=== PATIENT | female | born 1995 | race Caucasian/White ===

== ENCOUNTER 2021-10-26 12:09 | Emergency (ER) | payer SELFPAY ==
[2021-10-26 13:31] VITALS: BP 113/85; PULSE 99; RESP 14; TEMP 36.9; O2SAT 98; BMI 27.3
--- NOTE | 2021-10-26 13:51 | HMH.EDUTC ---
[facility] [place] Disposition Clinical Impression: Viral syndrome, Encounter for laboratory testing for COVID-19 virus Disposition: Home, Self-Care Condition on Discharge: Good Instructions: DI for COVID-19 (Suspected or Confirmed ), Preventing the Spread of Coronavirus Discharge Instructions Additional Instructions: Drink plenty of fluids. Take tylenol for pain or fever. Return if you begin to have difficulty breathing. Follow up with your regular doctor. GO TO THE ER FOR ANY WORSENING SYMPTOMS Quarantine until you know the results of your covid-19 test. If it is positive, the health department should call you and give you further instructions about your length of Quarantine and other things. Notify your school or workplace of your results and follow their instructions regarding return to work/school. Prescriptions: Brompheniramine/Pseudoephed/Dm [Bromfed Dm Cough Syrup] 5 ml PO Q6HP PRN #240 ml PRN Reason: Cough Transmission Status: Received by [facility] #[id number] Ondansetron [Zofran 4mg ODT] 4 mg PO Q8HP PRN #20 tab PRN Reason: Nausea Transmission Status: Received by [facility] #[id number] Referrals: Provider,Referral, [Primary Care Provider] - Forms: Work/School Release Time of Disposition: 13:58 Medical Decision Making - Medical Records Medical records reviewed: No: I reviewed the patient's medical records. - Rommel Inquiry Pt receiving controlled substance: No Vital Signs: 10/26/21 13:31 10/26/21 13:55 Temperature 98.5 F 98.5 F Temperature Source Oral Pulse Rate 99 H Pulse Rate [Left] 99 H Respiratory Rate 14 14 Blood Pressure 113/85 Blood Pressure [Right Arm] 113/85 Blood Pressure Mean [Right Arm] 94 02 Sat by Pulse Oximetry 98 [facility] [place] HPI - General Stated complaint: covid test Time Seen by Provider: 10/26/21 13:51 Mode of Arrival: Ambulatory Source of Information: Patient Limitations: No Limitations Description of Symptoms (Recalled from Triage Doc. by RN): pt c/o loss of taste, congestion and fatigue since yesterday. pt wants a covid test. HEENT Symptoms (Recalled from RN notes): Yes Resp Symptoms (Recalled from RN notes): No Skin Symptoms (Recalled from RN notes): No MS Symptoms (Recalled from RN notes): No Functional Status (Recalled from RN notes): wnl - History of Present Illness Provider Complaint: She states that she has felt bad since yesteday. She has a mild dry cough, scratchy throat, and fatigue. She denies any shortness of breath - Related Data Previous Rx's Medication Instructions Recorded Brompheniramine/Pseudoephed/Dm 5 ml PO Q6HP PRN #240 ml 10/26/21 [Bromfed Dm Cough Syrup] Ondansetron [Zofran 4mg ODT] 4 mg PO Q8HP PRN #20 tab 10/26/21 Allergies Allergy/AdvReac Type Severity Reaction Status Date / Time No Known Allergies Allergy Verified 10/26/21 13:34 - Worker's Comp Is this a Worker's Comp case?: No [facility] History - Hepatitis A Screen Drug use history?: No High risk sexual behaviors?: No History of sexually transmitted infection?: No Currently employed?: No Childcare worker?: No Do you have indoor plumbing?: Yes Do you have electricity?: Yes Attestation statement:: This patient has been screened for Hepatitis A risk factors. I have reviewed the patient's past medical history: Yes ROS Obtained: Yes All systems reviewed & no additional complaints - Constitutional Constitutional: Reports system reviewed and no additional complaints, except as docu - Eyes Eyes: Reports system reviewed and no additional complaints, except as docu - ENT Ears, Nose, Mouth, and Throat: Reports system reviewed and no additional complaints, except as docu - Cardiovascular Cardiovascular: Reports system reviewed and no additional complaints, except as docu - Respiratory Respiratory: Reports system reviewed and no additional complaints, except as docu Physical Exam - General General appearance: alert, in
[2021-10-26 13:55] VITALS: BP 113/85; PULSE 99; RESP 14; TEMP 36.9
== END 2021-10-26 14:04 | disposition home or self-care (01) ==
PROVIDERS: Emergency Provider Nurse Practitioner Family
DX: B34.9 Viral infection, unspecified (principal); Z20.822 Contact with and (suspected) exposure to COVID-19
CPT/HCPCS: 99212; C9803; G0463; U0003; U0005

== ENCOUNTER 2023-11-14 14:15 | Outpatient (CLI) | payer BC, SELFPAY ==
--- NOTE | 2023-11-14 | CA_ITS ---
APPROVED REPORT EXAM: Comprehensive 2D, Doppler, and color-flow Echocardiogram Wood Molder: Erlinda Mcintyre CRT Ht: 5 ft 8 in Wt: 210lbs BSA: 2.09 BP: 113/85 mmHg Indications: Chest Pain 2D Dimensions Left Atrium 2.49 cm LVEF (Bassett's) 52.30 % LVOT 1.73 cm (M/F) 1.5-2.5 LV Volume 100.60 mL LA Volume 32.90 mL LA Volume Index 15.70 mL/m2 (M/F) 16-34 EF AP4 55.20 % EF AP2 50.8 % EF BP 52.3 % GL Strain -17.6 % M-Mode Dimensions RVDd 1.71 cm (0.9-2.6) LVDd 4.96 cm (3.5-5.7) Ao Diam 3.29 cm (2.0-3.7) LVDs 3.48 cm (3.5-5.7) IVSd 0.57 cm (0.6-1.1) PWd 0.57 cm (0.6-1.1) EF (Teich) 56.80% FS 29.80% EDV (Teich) 116.10 mL TAPSE 1.53 (<1.7) ESV (Teich) 50.20 mL LV Diastology E Decel Time 192 (160-240 msec) E/A Ratio 1.30 MED E' 11.7 (>= 7 cm/sec) MED A' 9.30 cm/s E'/MED E' Ratio 5.44 (<= 14) LAT E' 14.2 (>= 10 cm/sec) LAT A' 11.40 cm/s E/LAT E' Ratio 4.49 (<= 14) Aortic Valve AoV Peak Shola. 112.0 (50-130 cm/s) AO Peak GR. 5.00 mmHg Mitral Valve MV E Max Shola. 64.0 (40-130 cm/s) MV A Velocity 49.0 (40-130 cm/s) E/A Ratio 1.30 MV Decel. Time 192 (160-240 ms) Tricuspid Valve TR P. Velocity 229.00 cm/s RAP Estimate 10.00 mmHg RVSP 31.00 mmHg Left Ventricle The left ventricle is normal size. The left ventricular systolic function is normal. The left ventricular ejection fraction is within the normal range. There is normal left ventricular wall thickness. There is normal LV segmental wall motion. The left ventricular diastolic function is normal. LVEF is 55%. Right Ventricle The right ventricle is normal size. The right ventricular systolic function is normal. Atria The left atrium size is normal. The right atrium size is normal. The interatrial septum is not well-visualized. Aortic Valve The aortic valve opens well. There is no aortic valvular stenosis. No aortic regurgitation is present. Mitral Valve The mitral valve is normal in structure. No evidence of mitral valve stenosis. There is no mitral valve regurgitation noted. Tricuspid Valve The tricuspid valve leaflets are thin and pliable. Trace tricuspid regurgitation. There is insufficient TR jet to estimate RVSP. Pulmonic Valve The pulmonary valve is normal in structure. Trace pulmonic regurgitation. Great Vessels The aortic root is normal in size. The ascending aorta is normal in size. IVC is normal in size and collapses >50% with inspiration. Pericardium There is no pericardial effusion. Other Information Study Quality: Adequate Conclusion Normal biventricular systolic function. No significant valvular stenosis or regurgitation. Electronically signed by : Donna Solis MD 11/16/2023 11:57:09
--- NOTE | 2023-11-14 | CA_ITS ---
APPROVED REPORT Exam: Exercise Treadmill Technologist: Ching Santos Ht: 5 ft 8 in Wt: 210 lbs BSA: 2.09 m2 HR: 79 bpm BP: 110/66 mmHg Indications: Chest pain Medical History Medications: Levothyroxine,,,,, Vitamin D3,,,,, Stress Test Details Test: Iván HR Resting HR: 94 bpm Max Heart Rate (APMHR): 192 bpm Max HR Achieved: 180 bpm Target HR (85% APMHR): 163 bpm % of APMHR: 94 Recovery HR: 104 bpm HR response to stress: Normal HR response to stress BP Resting BP: 110.0/66.0 mmHg Max BP: 141.0/77.0 mmHg Recovery BP: 109.0/68.0 mmHg BP response to stress: Normal blood pressure response to stress. ECG Resting ECG: Sinus rhythm Stress ECG: < 0.[address] depression Arrhythmia: None Recovery ECG: Return to baseline within 3 minutes of recovery Recovery Arrhythmia: None Clinical Exercise duration: 08:32 min Highest Stage Achieved: Exercise capacity: 10.1 METs Overall Exercise Capacity for Age: Average Stress ECG Conclusion The patient was able to exercise for a total of 8 minutes, 32 seconds. She achieved a total of 10.1 METS. She has average exercise capacity compared to age and sex matched peers. She has normal HR and BP response to exercise. Symptoms: Dyspnea Arrhythmias/Ectopy: None ST-T Changes: < 0.[address] depression Conclusion: Average exercise capacity. Normal GXT, EKG normal response to exercise. Test Summary REST . . . . . . . Standing REST 04:11 0.0 0.0 94 . 110/ 66 . . Stage 1 01:00 10.0 1.7 121 . . . . Stage 1 02:00 10.0 1.7 143 . . . . Stage 1 03:00 10.0 1.7 143 . 118/ 70 . . Stage 2 01:00 12.0 2.5 161 . . . . Stage 2 02:00 12.0 2.5 166 . . . . Stage 2 03:00 12.0 2.5 163 . 130/ 80 . . Stage 3 01:00 14.0 3.4 174 . . . . Stage 3 02:00 14.0 3.4 178 . . . . Stage 3 02:32 14.0 3.4 180 . 138/ 82 . Stop exercise at 08:32 RECOVERY 01:00 0.0 0.0 155 . 136/ 78 . . RECOVERY 02:00 0.0 0.0 119 . 136/ 78 . . RECOVERY 03:00 0.0 0.0 112 . 141/ 77 . . RECOVERY 04:00 0.0 0.0 101 . 130/ 71 . . RECOVERY 05:00 0.0 0.0 107 . 130/ 71 . . RECOVERY 06:00 0.0 0.0 106 . 130/ 71 . . RECOVERY 07:00 0.0 0.0 104 . 109/ 68 . . RECOVERY 07:11 0.0 0.0 109 . 109/ 68 . . Electronically signed by : Donna Solis MD 11/20/2023 10:35:45
== END 2023-11-14 23:59 ==
LOC: RT 14:17
PROVIDERS: PCP Family Medicine; Visit Provider Nurse Practitioner
DX: R07.9 Chest pain, unspecified (principal); R06.02 Shortness of breath
CPT/HCPCS: 93017; 93018; 93306

== ENCOUNTER 2024-02-14 15:23 | Emergency (ER) | payer BC, SELFPAY ==
--- NOTE | 2024-02-14 15:23 | ECG_ITS ---
APPROVED REPORT Exam: Resting ECG HR:75 bpm ECG Measurements Heart Rate 75 AXES AL 169 P 58 QRSd 88 QRS 65 QT 338 T 61 QTc 368 Conclusion SINUS RHYTHM WITH SINUS ARRHYTHMIA NORMAL ECG Electronically signed by : MORGAN RYDER, 02/14/2024 21:40:04
[2024-02-14 15:34] VITALS: BP 115/70; PULSE 78; RESP 15; TEMP 36.5; O2SAT 98; BMI 30.7
--- NOTE | 2024-02-14 15:41 | ED_ITS ---
<Statement entered by Sundar Mejia MD - 02/14/24 17:27> I was consulted by the DIPAK, and we discussed the complexity of the problems being addressed. I approved the treatment and management plan for this patient's care in the emergency department, thus performing a substantive portion of the medical decision making. Upon my evaluation patient had complete resolution of symptoms. She has slight leukocytosis that is of undetermined significance, very mild transaminitis with unknown baseline, no elevated lipase. Patient was tolerating p.o. at bedside. Given this all taken together with CT read showing cholelithiasis without evidence of cholecystitis I suspect patient has biliary colic, there was also an incidental pelvic mass that was found and it was impressed upon the patient that she should follow-up with gynecology for which she was referred given that she does not have one. Mild transaminitis is of undetermined etiology however I do not suspect choledocholithiasis as there was no reported dilated common bile duct and no evidence of cholecystitis, no elevated lipase. Patient was given multiple return precautions and verbalized understanding. Sundar Mejia MD Discharge Plan Disposition Patient Disposition: Home, Self-Care Condition: Good Prescriptions Prescriptions: New ondansetron 4 mg tablet,disintegrating 4 mg PO Q6H PRN (Reason: nausea and vomiting) Qty: 10 0RF No Action [id number] 118 ML syrup 5 ml PO Q6HP PRN (Reason: Cough) Qty: 240 0RF ondansetron 4 MG tablet,disintegrating 4 mg PO Q8HP PRN (Reason: Nausea) Qty: 20 0RF Referrals Follow up/Referrals: Janey Hunt DO [Staff Physician] - See instructions (Complex pelvic mass) Mario Kay MD [Staff Physician] - See instructions (Symptomatic cholelithiasis) Ana Conley APRN [Primary Care Provider] - See instructions Activity Restrictions/Add. Instructions Additional Instructions/Restrictions: I have referred you to both general surgery for your gallstone and [facility] for the pelvic findings on CT. Please call in the morning to make appointments with these providers. You should see [facility] within 1 week. Return to the ER for any worsening signs or symptoms as needed. Clinical Impressions Clinical Impression: Symptomatic cholelithiasis, Pelvic mass Instructions Patient Instructions: DI for Gallstones Discharge ED Provider: Sundar Mejia HPI <DOUG Scott - Last Filed: 02/14/24 17:22> General Chief Complaint: Chest Pain Stated Complaint: cp Time Seen by Provider: 02/14/24 15:40 Mode of Arrival: Ambulatory Source of Information: Patient Limitations: No Limitations Description of Symptoms (Recalled from ER Triage Doc. by RN): pt c/o sternal chest pain that radiates through to her back, epigasteric pain, shakiness, sweating, and N/V/D. pt states the pain is pressure and aching in nature and a 7/10. pt states this has been ongoing since 0. However pt states she has periodically had these episodes for a long time. pt states she had an echo and stress test after seeing that came back negative. pt presents crying and seems anxious. History of Present Illness HPI narrative: Patient presented initially with a chief complaint of chest pain . Patient states around noon today that she began having actually epigastric abdominal pain with associated nausea that radiates to her back but also nausea vomiting and diarrhea. Patient also reports periodic episodes of these for over a year. Patient's PCP sent her for an echo and stress testing that has come back negative. She denies any aggravating or relieving factors. Related Data Previous Rx's Medication Instructions Recorded jvqayctuslbuvfa-ouggwmhzbxjbaiq-BX 5 ml PO Q6HP PRN Cough #240 mL 10/26/21 2 mg-30 mg-10 mg/5 mL oral syrup ondansetron 4 mg disintegrating 4 mg PO Q8HP PRN Nausea #20 tabs 10/26/21 tablet ondansetron 4 mg disintegrating 4 mg PO Q6H PRN nausea and 02/14/24 tablet vomiting #10 tabs Allergies Allergy/AdvReac Type Severity Reaction Status Date / Time No Known Allergies Allergy Verified 02/14/24 15:40 PFSH <DOUG Scott - Last Filed: 02/14/24 17:22> PFS Disclaimer: The information contained in this section may have been updated after the patient was seen, as this information can be updated by other users. Social History Smoking Status: Current every day smoker alcohol intake: never current occupational status: employed Travel in the last 8 weeks: None <DOUG Scott - Last Filed: 02/14/24 17:22> ROS Obtained: Yes Systems reviewed as appropriate & no additional complaints except as documented Physical Exam <DOUG Scott - Last Filed: 02/14/24 17:22> General General appearance: alert and in no apparent distress Eye Eye exam: Absent scleral icterus Respiratory Respiratory exam: Present normal lung sounds bilaterally Cardiovascular Cardiovascular exam: Present regular rate and normal rhythm Abdominal Exam Abdominal exam: Present soft, tenderness (Patient is very tender to palpation in the epigastrium but no rebound or guarding or rigidity. Bowel sounds are normal active.) and normal bowel sounds; Absent guarding, rebound or rigidity Back Exam Back exam: Present normal inspection and full ROM; Absent tenderness Neurological Exam Neurological exam: Present alert and oriented X3 HEART Score <DOUG Scott - Last Filed: 02/14/24 17:22> HEART Score HEART Score assessment performed?: Yes History (anamnesis): Slightly suspicious ECG: Normal Age: <45 years Risk factors: No known risk factors Troponin: </= normal limit HEART Score: 0 Critical Care <DOUG Scott - Last Filed: 02/14/24 17:22> Critical Care Time Critical Care Time: No Medical Decision Making <DOUG Scott Last Filed: 02/14/24 17:22> Medical Records Medical records reviewed: Yes I reviewed the patient's medical records. Rommel Inquiry Pt receiving controlled substance: No Vital Signs Vital Signs: 02/14/24 15:34 02/14/24 16:30 Temperature 97.7 F Temperature Source Oral Pulse Rate 76 Pulse Rate [Left] 78 Respiratory Rate 15 17 Blood Pressure 116/77 Blood Pressure [Right Arm] 115/70 Blood Pressure Mean 86 Blood Pressure Mean [Right Arm] 85 02 Sat by Pulse Oximetry 98 98 Oxygen Delivery Method Room Air Lab Data Lab results reviewed: Yes I reviewed the patient's lab results. Labs: Lab Results 02/14/24 15:30: WBC 14.6 H, RBC 4.65, Hgb 13.8, Hct 42.4, MCV 91.1, MCH 29.7, MCHC 32.6, RDW 14.3, Plt Count 325, MPV 8.3, Neut % (Auto) 87.2 H, Lymph % (Auto) 8.3 L, [place] % (Auto) 3.7, Eos % (Auto) 0.5, Baso % (Auto) 0.3, Neut # (Auto) 12.8 H, Lymph # (Auto) 1.2, [place] # (Auto) 0.5, Eos # (Auto) 0.1, Baso # (Auto) 0.1, Total Counted 100, Neutrophils % (Manual) 88 H, Lymphocytes % (Manual) 10, Monocytes % (Manual) 1 L, Eosinophils % (Manual) 1, Platelet Estimate Normal, RBC Morphology Normal, PT 11.1, INR 1.03, Sodium 139, Potassium 4.0, Chloride 106, Carbon Dioxide 25, Anion Gap 12.0, BUN 12, Creatinine 0.70, Estimated Creat Clear 173, Estimated GFR 100, Est GFR ( Amer) 121, G lucose 108 H, Calcium 9.3, Magnesium 1.9, Total Bilirubin 0.6, AST 157 H, ALT 85 H, Alkaline Phosphatase 110, Troponin I < 0.01, Total Protein 8.1, Albumin 4.6, Globulin 3.5 H, Albumin/Globulin Ratio 1.3, Lipase 64, Serum HCG, Qual Negative 02/14/24 16:04: Lactate 0.6 L 02/14/24 15:30 02/14/24 15:30 Response Orders (Tests/Meds): ED MEDICATIONS Discontinued Medications Generic Name Dose Route Start Last Admin Trade Name Freq PRN Reason Stop Dose Admin Acetaminophen 1,000 mg 02/14/24 15:48 02/14/24 16:11 Acetaminophen 1,000mg/100ml Vial IV 02/14/24 15:49 1,000 mg ONCE ONE Administration Belladonna Alkaloids 60 ml 02/14/24 15:48 02/14/24 16:10 Belladonna Alkaloids 60 Ml Ml PO 02/14/24 15:49 60 ml ONCE ONE Administration Lactated Ringer's 1,000 mls @ 999 mls/hr 02/14/24 15:48 02/14/24 16:10 Lactated Ringer's 1000 Ml Bag IV 02/14/24 16:48 999 mls/hr .Q1H1M ONE Administration Iopamidol 75 ml 02/14/24 16:23 02/14/24 16:24 Iopamidol-370 (76%);100ml Bottle IV 02/14/24 16:24 75 ml ONCE ONE Administration Ketorolac Tromethamine 15 mg 02/14/24 15:48 02/14/24 16:10 Ketorolac 30mg/Ml Vial IV 02/14/24 15:49 15 mg ONCE ONE Administration Sodium Chloride 10 ml 02/14/24 16:23 02/14/24 16:24 Sodium Chloride 0.9% 10ml Syr (Rad Only) IV 02/14/24 16:24 10 ml ONCE ONE Administration ORDERS Category Date Time Status CT abdomen pelvis w con Stat Cat Scan 02/14/24 15:49 Taken Chest XR -- portable [XR chest portable] Stat Exams 02/14/24 15:49 Taken CBC w/Auto Diff [Complete Blood Count Auto Diff] Stat Lab 02/14/24 15:30 Completed CMP [Comprehensive Metabolic Panel] Stat Lab 02/14/24 15:30 Completed HCG Qualitative, Serum Stat Lab 02/14/24 15:30 Completed INR [Prothrombin Time INR] Stat Lab 02/14/24 15:30 Completed Lactic Acid Stat Lab 02/14/24 16:04 Completed Lipase Stat Lab 02/14/24 15:30 Completed Magnesium Stat Lab 02/14/24 15:30 Completed Trop I [Troponin I] Stat Lab 02/14/24 15:30 Completed Troponin I Q3H Lab 02/14/24 19:00 Ordered Troponin I Q3H Lab 02/14/24 22:00 Ordered UA [Urinalysis and Microscopic] Stat Lab 02/14/24 15:49 Ordered MDM Narrative Medical Decision Narrative: In summary patient is a 28-year-old female who presents to the emergency department for evaluation of epigastric abdominal pain. Patient is hemodynamically stable upon arrival, afebrile. Physical exam is remarkable for exquisite epigastric abdominal pain negative Stout sign on palpation but no rebound or guarding no rigidity. Normal breath sounds normal heart sounds no dependent edema noted. Differential diagnosis includes pancreatitis versus esophagitis versus ulcer disease versus cholecystitis versus cholelithiasis versus choledocholithiasis Cetera. Initial workup will be conducted with hematologic labs, urinalysis, CT scan abdomen pelvis. Initial interventions include crystalloid bolus Toradol Tylenol GI cocktail. Initial workup reviewed by me shows her hematologic labs are nonactionable however my informal interpretation of her CT scan abdomen pelvis shows thickened gallbladder with a gallstone suggestive of acute cholecystitis and also incidental finding of complex right-sided adnexal mass of undetermined significance. Upon repeat evaluation patient had complete resolution of her symptoms after initial intervention. Given this patient is appropriate for discharge with referral to general surgery for her gallbladder and to [facility] for her pelvic mass and for further evaluation of that <Sundar Mejia MD - Last Filed: 02/14/24 15:59> Vital Signs Vital Signs: 02/14/24 15:34 02/14/24 16:30 Temperature 97.7 F Temperature Source Oral Pulse Rate 76 Pulse Rate [Left] 78 Respiratory Rate 15 17 Blood Pressure 116/77 Blood Pressure [Right Arm] 115/70 Blood Pressure Mean 86 Blood Pressure Mean [Right Arm] 85 02 Sat by Pulse Oximetry 98 98 Oxygen Delivery Method Room Air Lab Data Labs: Lab Results 02/14/24 15:30: WBC 14.6 H, RBC 4.65, Hgb 13.8, Hct 42.4, MCV 91.1, MCH 29.7, MCHC 32.6, RDW 14.3, Plt Count 325, MPV 8.3, Neut % (Auto) 87.2 H, Lymph % (Auto) 8.3 L, [place] % (Auto) 3.7, Eos % (Auto) 0.5, Baso % (Auto) 0.3, Neut # (Auto) 12.8 H, Lymph # (Auto) 1.2, [place] # (Auto) 0.5, Eos # (Auto) 0.1, Baso # (Auto) 0.1, Total Counted 100, Neutrophils % (Manual) 88 H, Lymphocytes % (Manual) 10, Monocytes % (Manual) 1 L, Eosinophils % (Manual) 1, Platelet Estimate Normal, RBC Morphology Normal, PT 11.1, INR 1.03, Sodium 139, Potassium 4.0, Chloride 106, Carbon Dioxide 25, Anion Gap 12.0, BUN 12, Creatinine 0.70, Estimated Creat Clear 173, Estimated GFR 100, Est GFR ( Amer) 121, G lucose 108 H, Calcium 9.3, Magnesium 1.9, Total Bilirubin 0.6, AST 157 H, ALT 85 H, Alkaline Phosphatase 110, Troponin I < 0.01, Total Protein 8.1, Albumin 4.6, Globulin 3.5 H, Albumin/Globulin Ratio 1.3, Lipase 64, Serum HCG, Qual Negative 02/14/24 16:04: Lactate 0.6 L Response Orders (Tests/Meds): ED MEDICATIONS Discontinued Medications Generic Name Dose Route Start Last Admin Trade Name Raq PRN Reason Stop Dose Admin Acetaminophen 1,000 mg 02/14/24 15:48 02/14/24 16:11 Acetaminophen 1,000mg/100ml Vial IV 02/14/24 15:49 1,000 mg ONCE ONE Administration Belladonna Alkaloids 60 ml 02/14/24 15:48 02/14/24 16:10 Belladonna Alkaloids 60 Ml Ml PO 02/14/24 15:49 60 ml ONCE ONE Administration Lactated Ringer's 1,000 mls @ 999 mls/hr 02/14/24 15:48 02/14/24 16:10 Lactated Ringer's 1000 Ml Bag IV 02/14/24 16:48 999 mls/hr .Q1H1M ONE Administration Iopamidol 75 ml 02/14/24 16:23 02/14/24 16:24 Iopamidol-370 (76%);100ml Bottle IV 02/14/24 16:24 75 ml ONCE ONE Administration Ketorolac Tromethamine 15 mg 02/14/24 15:48 02/14/24 16:10 Ketorolac 30mg/Ml Vial IV 02/14/24 15:49 15 mg ONCE ONE Administration Sodium Chloride 10 ml 02/14/24 16:23 02/14/24 16:24 Sodium Chloride 0.9% 10ml Syr (Rad Only) IV 02/14/24 16:24 10 ml ONCE ONE Administration ORDERS Category Date Time Status CT abdomen pelvis w con Stat Cat Scan 02/14/24 15:49 Taken Chest XR -- portable [XR chest portable] Stat Exams 02/14/24 15:49 Taken CBC w/Auto Diff [Complete Blood Count Auto Diff] Stat Lab 02/14/24 15:30 Completed CMP [Comprehensive Metabolic Panel] Stat Lab 02/14/24 15:30 Completed HCG Qualitative, Serum Stat Lab 02/14/24 15:30 Completed INR [Prothrombin Time INR] Stat Lab 02/14/24 15:30 Completed Lactic Acid Stat Lab 02/14/24 16:04 Completed Lipase Stat Lab 02/14/24 15:30 Completed Magnesium Stat Lab 02/14/24 15:30 Completed Trop I [Troponin I] Stat Lab 02/14/24 15:30 Completed Troponin I Q3H Lab 02/14/24 19:00 Ordered Troponin I Q3H Lab 02/14/24 22:00 Ordered UA [Urinalysis and Microscopic] Stat Lab 02/14/24 15:49 Ordered ECG Data Tracing #1: ECG Narrative: Independently interpreted by me rate is 28, rhythm is regular, axis is normal, no ST elevation in anatomical contiguous leads, QTc 368.
--- NOTE | 2024-02-14 15:49 | CT_ITS ---
FINAL REPORT TECHNIQUE: After the administration of oral and intravenous contrast, axial images were obtained through the abdomen and pelvis by computed tomography. The study was performed with techniques to keep radiation dose as low as reasonably achievable, (ALARA). Individual dose reduction techniques using automated exposure control or adjustment of mA and/or kV according to the patient's size were employed. CLINICAL HISTORY: Epigastric abdominal pain FINDINGS: Abdomen: No acute density is seen within the lung bases. There is cholelithiasis. Recent Solid abdominal organs are unremarkable. No bowel obstruction is present. There is no free air. No fluid collection is seen. There is no adenopathy. Pelvis: The appendix is normal. The uterus is unremarkable. There are adjacent masses of the pelvis. Right adnexal mass measures 5.2 cm with a fluid density of 7 Hounsfield units. There is an adjacent more posterior mass in the pelvic cul-de-sac measuring 6 cm with a density of 25 Hounsfield units. This could be complex, cystic, or solid. No bowel wall thickening is present. There is no free fluid. No pelvic mass is seen. IMPRESSION: No bowel obstruction or inflammatory changes. Cholelithiasis without findings of acute gallbladder disease. Right adnexal and posterior pelvic masses. Recommend metal pattern maker follow-up. Emergent ultrasound is not needed. Reviewed, Interpreted and Dictated by Jannet Mdadox MD Transcribed by Ariadne Farooq Authenticated and [facility]
--- NOTE | 2024-02-14 15:49 | XR_ITS ---
FINAL REPORT CLINICAL HISTORY: Chest pain/epigastric abdominal pain FINDINGS: No acute pulmonary opacity is present. There is no evidence of effusion or pneumothorax. Mediastinum is unremarkable. Heart size is normal. IMPRESSION: No acute abnormality. Reviewed, Interpreted and Dictated by Jannet Maddox MD Transcribed by Ariadne Farooq Authenticated and [facility]
[2024-02-14 15:59] LABS: Basophils # 0.1 K/mm3 (0-0.2); Basophils % 0.3 % (0.1-2.0); Eosinophils # 0.1 K/mm3 (0.0-0.4); Eosinophils % 0.5 % (0.1-12.0); Hematocrit 42.4 % (37.0-47.0); Hemoglobin 13.8 g/dL (12.2-16.2); Lymphocytes # 1.2 K/mm3 (0.7-4.5); Lymphocytes % 8.3 % (10-50); Mean Corpuscular HGB Conc 32.6 g/dL (31.8-35.4); Mean Corpuscular Hemoglobin 29.7 pg (27.0-31.2); Mean Corpuscular Volume 91.1 fl (81-99); Mean Platelet Volume 8.3 fl (7.4-10.4); Monocytes # 0.5 K/mm3 (0.1-1.0); Monocytes % 3.7 % (1.7-9.3); Neutrophils # 12.8 K/mm3 (1.8-7.8); Neutrophils % 87.2 % (37.0-80.0); Platelet Count 325 K/mm3 (142-424); Red Blood Count 4.65 M/mm3 (4.20-5.40); Red Cell Distribution Width 14.3 % (11.5-17.5); White Blood Count 14.6 K/mm3 (4.8-10.8)
[2024-02-14 16:00] LABS: MANUAL DIFFERENTIAL MANUAL DIFFERENTIAL (MANUAL DIFF)
[2024-02-14 16:02] LABS: INR 1.03 (0.9-1.1); Prothrombin Time 11.1 seconds (10.1-12.5)
[2024-02-14 16:04] LABS: Chloride 106 mmol/L (98-107); Sodium 139 mmol/L (136-145)
[2024-02-14 16:07] LABS: Alanine Aminotransferase 85 U/L (12-78); Alkaline Phosphatase 110 U/L (38-126); Aspartate Amino Transferase 157 U/L (14-36); Bilirubin,Total 0.6 mg/dl (0.2-1.3); Blood Urea Nitrogen 12 mg/dl (7-17); Carbon Dioxide 25 mmol/L (22.0-30.0); Creatinine Clearance Estimated 173 mL/min (50-200); Estimated Glomerular Filt Rate 100 ml/min (>60); GFR (African American) 121 ML/MIN (>60); HCG Qualitative, Serum Negative (Negative); Lipase 64 U/L (23-300)
[2024-02-14 16:08] LABS: Albumin Level 4.6 g/dl (3.5-5.0); Albumin/Globulin Ratio 1.3 (1.1-1.8); Calcium 9.3 mg/dl (8.4-10.2); Globulin 3.5 g/dL (1.3-3.2); Glucose 108 mg/dl (74-100); Magnesium 1.9 mg/dl (1.6-2.3); Total Protein,Serum 8.1 g/dl (6.3-8.2)
[2024-02-14] MEDS: KETOROLAC 30MG/ML VIAL 15 MG IV (16:10)
[2024-02-14] MEDS: LACTATED RINGERS 1000ML 1,000 ML 999 ML IV (16:10)
[2024-02-14] MEDS: BELLADONNA ALKALOIDS 60 ML ML PO (16:10)
[2024-02-14] MEDS: ACETAMINOPHEN 1,000MG/100ML VIAL 1000 MG IV (16:11)
[2024-02-14 16:20] LABS: Eosinophils % 1 % (0-3); Lymphocytes % 10 % (10-50); Monocytes % 1 % (2-9); Neutrophils % 88 % (42-76); Platelet Estimate Normal; RBC Morphology Normal; Total Cells Counted 100; Troponin I < 0.01 ng/ml (0.00-0.034)
[2024-02-14 16:22] LABS: Lactic Acid 0.6 mmol/L (0.7-2.1)
[2024-02-14] MEDS: SODIUM CHLORIDE 0.9% 10ML SYR (RAD ONLY) 10 ML IV (16:24)
[2024-02-14] MEDS: IOPAMIDOL-370 (76%);100ML BOTTLE 75 ML IV (16:24)
[2024-02-14 16:30] VITALS: BP 116/77; PULSE 76; RESP 17; O2SAT 98
--- NOTE | 2024-02-14 16:46 | PC.NURSE ---
Rounded on pt. Water provided. No other needs voiced. Call light within reach.
--- NOTE | 2024-02-14 17:13 | PC.NURSE ---
Dr. Mejia at [facility] for pt eval
[2024-02-14 17:23] VITALS: BP 112/66; PULSE 83; RESP 18; TEMP 36.5; O2SAT 97
== END 2024-02-14 17:30 | disposition home or self-care (01) ==
PROVIDERS: Physician Assistant; Emergency Provider Emergency Medicine; PCP Nurse Practitioner
DX: R10.13 Epigastric pain (principal); K80.20 Calculus of gallbladder without cholecystitis without obstruction; R19.00 Intra-abdominal and pelvic swelling, mass and lump, unspecified site; R11.2 Nausea with vomiting, unspecified; R19.7 Diarrhea, unspecified; R42 Dizziness and giddiness; F17.210 Nicotine dependence, cigarettes, uncomplicated
CPT/HCPCS: 71045; 74177; 80053; 83605; 83690; 83735; 84484; 84703; 85007; 85025; 85027; 85610; 93005; 96361; 96374; 96375; 96376; 99285; J0131; J1885; J7120; Q9967

== ENCOUNTER 2024-02-21 15:20 | Outpatient (CLI) | payer BC, SELFPAY ==
--- NOTE | 2024-02-21 15:28 | US_ITS ---
PROCEDURE: US TRANSVAGINAL CLINICAL INDICATION: pelvic mass seen on CT scan COMPARISON: CT CT ABDOMEN PELVIS W CON from 02/14/2024 FINDINGS: Transvaginal sonographic images of the pelvis were obtained. UTERUS: 7.2cm x 3.6 cmx 3.2cm anteverted with a combined endometrial thickness of 4.9mm. LEFT OVARY: [id number] with a volume of 10.4ml. There is a dominant follicle measuring 1.3 cm x 1.7 cm x 1.4 cm. There are multiple small peripheral follicles as well. RIGHT OVARY: 5.6cmx 5.3cmx3.7 cm with a volume of 58.4ml. There is a simple cyst in the right ovary measuring 5.0 cm x 4.5 cm x 5.0 cm. There is a 2nd simple cyst in the cul-de-sac measuring 5.3 cm x 6.0 cm x 4.8 cm. These 2 cysts seem to all part of the right ovary and are by a thin wall. Doppler flow to both ovaries are seen. There is no fluid in the cul-de-sac. IMPRESSION: 1. Anteverted uterus normal in shape and size. The endometrium is thin. 2. The left ovary is seen and appears normal. There is a dominant follicle measuring 1.7 cm and multiple peripheral follicles. 3. The right ovary contains 2 simple cysts with a thin wall between the cysts. Cyst #1 measures 5 cm in cyst# 2 measures 6 cm. 4. There is no fluid in the cul-de-sac. Dictated by: Justus Rangel MD 02/23/2024 16:38 Justus Rangel MD in [facility] 02/23/2024 16:38
== END 2024-02-21 23:59 | disposition home or self-care (01) ==
LOC: RAD 15:23
PROVIDERS: PCP Nurse Practitioner; Visit Provider Obstetrics & Gynecology
DX: R10.2 Pelvic and perineal pain (principal); R19.00 Intra-abdominal and pelvic swelling, mass and lump, unspecified site
CPT/HCPCS: 76830

== ENCOUNTER 2024-03-13 07:30 | Outpatient (CLI) | payer BC, SELFPAY ==
--- NOTE | 2024-03-13 07:37 | US_ITS ---
FINAL REPORT TECHNIQUE: Multiple transverse and longitudinal images CLINICAL HISTORY: RUQ pain COMPARISON: None FINDINGS: The gallbladder shows wall thickening, without distention. Gallstones are present in the gallbladder. No biliary ductal dilatation is appreciated. No fluid collections are seen. No evidence of ascites is noted. Limited portions of the right liver are unremarkable. Limited portions of the right kidney are unremarkable. IMPRESSION: Gallstones are present in the gallbladder, along with wall thickening without distention. No biliary ductal dilatation is present. Reviewed, Interpreted and Dictated by Jannet Maddox MD Transcribed by Inga Zaragoza Authenticated and [facility]
== END 2024-03-13 23:59 | disposition home or self-care (01) ==
LOC: RAD 07:31
PROVIDERS: PCP Nurse Practitioner; Visit Provider Surgery
DX: K80.20 Calculus of gallbladder without cholecystitis without obstruction (principal)
CPT/HCPCS: 76705

== ENCOUNTER 2024-04-03 07:19 | Day surgery (SDC) | payer BC, SELFPAY ==
[2024-04-02 16:24] VITALS: BMI 30.5
[2024-04-03] VITALS (10 sets, daily range): BP systolic 111–128; BP diastolic 61–76; PULSE 90–128; RESP 14–19; TEMP 36.3–43; O2SAT 97–98
[2024-04-03 07:43] LABS: Urine Pregnancy, HCG Qual. Negative (Negative)
[2024-04-03] MEDS: LACTATED RINGERS 1000ML 1,000 ML 25 ML IV (07:55)
[2024-04-03 08:27] LABS: Chloride 113 mmol/L (98-107); Potassium 4.5 mmoL/L (3.5-5.1); Sodium 138 mmol/L (136-145)
[2024-04-03 08:30] LABS: Alanine Aminotransferase 18 U/L (12-78); Albumin/Globulin Ratio 1.5 (1.1-1.8); Alkaline Phosphatase 91 U/L (38-126); Anion Gap 7.5 mEq/L (5-15); Aspartate Amino Transferase 29 U/L (14-36); Bilirubin,Total 0.4 mg/dl (0.2-1.3); Blood Urea Nitrogen 11 mg/dl (7-17); Calcium 8.9 mg/dl (8.4-10.2); Carbon Dioxide 22 mmol/L (22.0-30.0); Creatinine Clearance Estimated 201 mL/min (50-200); Estimated Glomerular Filt Rate 119 ml/min (>60); GFR (African American) 144 ML/MIN (>60); Globulin 2.7 g/dL (1.3-3.2); Glucose 91 mg/dl (74-100); Total Protein,Serum 6.7 g/dl (6.3-8.2)
[2024-04-03] MEDS: CEFAZOLIN SODIUM 2 GM in 0.9 % SODIUM CHLORIDE 100 ML IV (09:02)
[2024-04-03] MEDS: LIDOCAINE 1% 20ML MDV 20 ML (09:22)
[2024-04-03] MEDS: SODIUM CHLORIDE IRRIG SOLUTION 3,000 ML 25 ML IR (09:22)
[2024-04-03] MEDS: ROPIVACAINE 0.5% 30ML VIAL 150 MG (09:22)
--- NOTE | 2024-04-03 09:33 | P.PNANES_ITS ---
[facility] Disclaimer: The information contained in this section may have been updated after the patient was seen, as this information can be updated by other users. Medical History Hypothyroid Pelvic mass Surgical History No significant past surgical history Family History Other Diabetes Social History Smoking Status: Current every day smoker alcohol intake: never substance use type: denies use current occupational status: employed Travel in the last 8 weeks: None [facility] Anesthesia Checklist Patient Identification Patient Identification: Verbal (Name & ) Structural Data Admitted From: Home Planned Operative Procedure/s: lap becky Consent for Planned Operative Procedure(s) Verified: Yes NPO Status Verified Time NPO: 00:00 Additional verifications Anesthesia Reactions: No Hx Blood Transfusions: No Airway Assessment Mallampati Score:: Class II C-Spine Mobility Assessed: Yes TMJ Mobility Assessed: Yes Dentition: Good Dentition Neurological Assessment Level of Consciousness: Awake, Alert and Appropriate Anesthesia Plan Anesthesia Risk discussed: Yes Anesthesia Plan: Verified ASA Class: II Anesthesia Type: General
--- NOTE | 2024-04-03 11:15 | EXP.OP.NOTE ---
Date of procedure: 04/03/24 Pre-op Diagnosis:: Symptomatic gallstones Post-op Diagnosis:: Same Procedure performed:: Laparoscopic cholecystectomy Surgeon:: Mario Kay MD DOBBY LOOM WEAVER:: Dayron Amador Anesthesia: GETA Estimated blood loss (mL): 30 Operative findings:: She had a distended thickened gallbladder with some posterior edema. Infundibulum/neck of the gallbladder was distended down to the antonio hepatis overlying apparent right hepatic artery. Due to its distention delineation of anatomy required very prolonged dissection and was difficult to discern initially. Gallbladder was filled with multiple various sized gallstones and thick particulate sludge . Operative note:: Consent was obtained and patient was taken the operating room. She was given preoperative intravenous antibiotics. In the operating room she was placed in a supine position. General anesthesia was induced via endotracheal tube. Abdomen was prepped and draped in the standard surgical fashion. Subumbilical skin incision was made. While performing abdominal wall lift Veress needle was inserted. CO2 pneumoperitoneum was achieved to 15 mmHg. 11 mm optical trocar was inserted at the umbilicus. Intraperitoneal contents were visualized. She was positioned in reverse Trendelenburg left side down. A couple of 5 mm trocars were inserted in the right upper abdomen. 11 mm trocar was inserted in the epigastrium. Liver was elevated. Gallbladder was identified. It was retracted anteriorly and superiorly over the dome of the liver. There were noted to be multiple moderate-sized gallstones. There was some significant fatty infiltration around the neck of the gallbladder. Prolonged dissection was carried out incising the visceral peritoneum at the neck of the gallbladder. Some use of JEN ultrasonic harmonic shashank was used for dissection laterally. There is some minor oozing from the cystic triangle and temporarily Surgicel was inserted for hemostasis and then withdrawn. There was a gallstone noted in the neck of the gallbladder. Prolonged dissection was carried out ultimately identifying the cystic duct and cystic artery. The cystic duct was multiply clipped and sharply divided. The neck of the gallbladder was then elevated and there was noted to be posterior presumed right hepatic artery with cystic artery branching from this. Additional prolonged dissection was carried out dissecting the gallbladder free from the right hepatic artery mostly using blunt dissection carefully and meticulously. Once this was done careful meticulous blunt dissection was carried out isolating the cystic artery. This was then coagulated with JEN ultrasonic harmonic shashank and divided. Gallbladder was then dissected free from the liver in a retrograde fashion using JEN ultrasonic harmonic shashank. Gallbladder was placed within an Endo Catch retrieval device and removed from the peritoneal cavity via the umbilical trocar site which required some extension of the fascial incision for delivery. Gallbladder fossa was then inspected for hemostasis which was assured. Thorough irrigation and suctioning was performed. At this point Dr. Hunt performed her portion of the procedure. Please see additional operative note for complete details. Trocars were then removed and CO2 pneumoperitoneum was evacuated. Fascia at the umbilicus was closed with multiple 0 Ethibond sutures. Local anesthetic was infiltrated. Skin incision was closed with 4-0 Monocryl in a subcuticular fashion. Dermabond and dressings were applied. . Condition: stable Disposition: PACU Complications:: None immediately apparent.
--- NOTE | 2024-04-03 11:49 | SUR.OPER ---
1134- Dr Hunt gave verbal orders to this RN to go add a right salpingectomy to the consent. Verbal orders also given to this RN to discuss that the right ovary is going to be removed, along with the attached cyst, but the right fallopian tube also needed to be removed due to the size, location and contents within the right ovarian cyst. Orders repeated back and correct. Spoke to the father of the patient at this time. Discussed the above with the father who then expressed concerns for her not being able to have children due to removing the right fallopian tube along with the right ovary. This RN mentioned that it would decrease the likelihood of having children, but not eliminate it due to the patient still having her left fallopian tube. The father of the patient expressed his concerns for signing the consent and giving us permission to take the right fallopian tube. The father was told to stay in the waiting room and this RN or Dr Hunt herself would be back out to talk to him. This information was relayed to Dr Hunt and she scrubbed out to discuss matters further with the patients dad. 1145- Dr Hunt back in OR, consent was signed by father after further discussion with Dr Hunt. Case continued. Patient remained stable throughout.
--- NOTE | 2024-04-03 12:59 | P.PNANES_ITS ---
[facility] Anesthesia Record Part I Anesthesia Record I Intake, IV Amount: 2,800 Hydration: Adequate Estimated blood loss (mL): 50 Urine output (mL): 500 Blood Pressure: 127/71 SaO2: 97 Pulse Rate: 120 Airway Patency: Patent Respiratory Rate: 14 Temperature: 97.6 F Patient is:: Awake and Stable Stable to PACU at:: 12:55
[2024-04-03] MEDS: MORPHINE 2MG/ML SYRINGE 2 MG IV (13:12)
[2024-04-03] MEDS: ONDANSETRON 4MG/2ML VIAL 4 MG IV (13:18)
--- NOTE | 2024-04-03 13:27 | P.OP_ITS ---
Date of procedure: 04/03/24 Pre-op Diagnosis:: 1. 6cm right fallopian tube cyst 2. 5cm right ovarian cyst. 3. Needs papanicolaou smear Post-op Diagnosis:: 1. 6cm right fallopian tube cyst 2. 5cm right ovarian cyst. 3. Needs papanicolaou smear Procedure performed:: 1. Diagnostic Laparoscopy 2. Right oophorectomy with removal of right ovarian cyst and right fallopian tube cyst 3. Pap smear Surgeon:: Janey Hunt DO DIRECTOR FACILITIES MAINTENANCE:: Dayron Amador Anesthesia: GETA Estimated blood loss (mL): 5 Operative findings:: 1. Right ovarian cyst, approximate 5 cm, fluctuant, and appeared to be lacking any solid components. 2. Right fallopian tube cyst, approximately 6 cm, fluctuant, and appeared to be lacking any solid components 3. Normal-appearing uterus, left adnexal complex including the ovary and fallopian tube, and liver. 4. When I entered the abdomen I noted a small very superficial scratch on the small bowel. It did not appear to be a serosal injury. It appeared to be 1 cell layer only. This was reviewed with Dr. Kay at the end of the case who agreed it was superficial and likely nonconcerning/managed expectantly. Operative note:: Abel Whalen is a 28-year-old G0 who presented to me after a ED visit where an incidental ovarian cyst was noted in the ED. she was evaluated in the ED for sternal chest pain that radiated to her back, epigastric pain, and GI symptoms. When I saw the patient in the office she was not complaining of any of the after mentioned symptoms, she does endorse she experiences pelvic pressure. When I entered the patient was in lithotomy and prepped for a cholecystectomy. One additional left lower quadrant 5mm port was placed for improved access to the pelvis. Examination of the pelvis revealed findings as above. There were two very large complete pelvis occupying right adnexal cyst. The left ovary appeared normal. The right ovarian cyst appeared to have endometriosis on it. The left ovary was further examined and noted to have small clear blebs on it, possibly endometriosis. There were no lesions noted in the cul-de-sac. The cysts were elevated and examined. The ureter was examined and noted to be peristalsis distally. The consent form did not contain salpingectomy on it but the fallopian tube was stretched over the ovarian cyst and would be removed with it. The support person was contacted to discuss this. As this was occuring there was a small area of the bowel that was noted. There appeared to be a disruption of the first cell layer covering the bowel. It didnt appear to be a full serosal injury. At the end of the case this was discussed with Dr. Kay who felt it would not cause any additional problems and was an incidental finding that was possibly there prior to the surgery. The harmonic electrocautery device was used to transect the fimbriated end and the 6 cm fallopian tube cyst. This was placed in an Endo Catch bag and drained. The fluid drained off of this was sent to cytology. The fallopian tube cyst was removed through the umbilical port and sent to pathology for further evaluation. There was no spillage of the contents in the abdominal cavity. A harmonic electrocautery device was used to clamp, coagulate, and transect the infundibulopelvic ligament as well as the utero-ovarian ligament. The remaining of the fallopian tube was removed along with the ovary and right ovarian cyst. These were placed in an Endo Catch bag and removed through the umbilical port along with the trocar. Once in the Endo Catch bag of this ovary was incised and drained. There was no spillage of the ovarian contents into the abdominal cavity. Ovary and ovarian cyst were sent to pathology for further evaluation. The area was examined and noted to be hemostatic. Pneumoperitoneum was reduced, and all instruments removed from the abdomen. Dr. Kay returned and closed the umbilical port. The other incisions were closed with 4-0 Monocryl and Dermabond Pt was frog legged and pap smear was collected in standard fashion. She will be transitioned to the PACU and follow-up in 2 weeks to review the pathology. Condition: stable Disposition: same day Specimens:: Right ovary, right ovarian cyst, right fallopian tube, right fallopian tube cyst, fallopian tube cyst fluid sent for cytology Pap smear Complications:: None
[2024-04-03 13:28] LABS: Microscopic,Cath URINE MICROSCOPIC (MICROSCOPIC)
[2024-04-03 13:41] LABS: Appearance,Urine/Cath CLEAR (Clear); Bilirubin,Cath Negative (Negative); Blood, Urine/Cath Negative (Negative); Color,Urine/Cath YELLOW (Yellow); Glucose,Urine/Cath (UA) Negative (Negative); Ketones,Urine/Cath Negative (Negative); Leukocyte Esterase,Cath Negative (Negative); Nitrate,Cath Negative (Negative); Protein,Urine/Cath Negative (Negative); Specific Gravity, Urine/Cath >= 1.030 (1.005-1.030); Urobilinogen,Cath 0.2 EU/dl (0.2)
[2024-04-03 13:59] LABS: RBC,Urine/Cath Occasional # /hpf (0-3); Squamous Epithelial Ur./Cath Occasional #/hpf (0-5)
--- NOTE | 2024-04-04 07:57 | EXP.ANES.II ---
[facility] Anesthesia Record Part II Anesthesia Record Part II Discharge Time: 13:25 Destination: Surgical Day Care (OP Surgery) PACU nurse assessment reviewed?: Yes Patient Condition:: Good Anesthesia Complications:: None Swallowing reflex intact?: Yes Airway Patency: Patent Cyanosis?: No Blood Pressure: 122/65 SaO2: 97 Respiratory Rate: 19 Pulse Rate: 113 Temperature: 98.1 F Mental Status: Alert & Oriented Pain level:: 0 Nausea and/or vomitting:: None Intake, IV Amount: 0 Hydration: Adequate
[2024-04-04 07:58] VITALS: BP 122/65; PULSE 113; RESP 19; TEMP 36.7; O2SAT 97
== END 2024-04-03 13:56 | disposition home or self-care (01) ==
PROVIDERS: Obstetrics & Gynecology; PCP Nurse Practitioner; Visit Provider Surgery
PROC: 0FT44ZZ Resection of Gallbladder, Percutaneous Endoscopic Approach (ICD-10-PCS; CPT 47562; principal; 2024-04-03 09:00)
PROC: 0TTB4ZZ Resection of Bladder, Percutaneous Endoscopic Approach (ICD-10-PCS; CPT 51999; 2024-04-03 09:00)
DX: K80.20 Calculus of gallbladder without cholecystitis without obstruction (principal); R10.13 Epigastric pain; N83.201 Unspecified ovarian cyst, right side; N83.8 Other noninflammatory disorders of ovary, fallopian tube and broad ligament; N80.9 Endometriosis, unspecified
CPT/HCPCS: 47562; 58661; 80053; 81001; 81025; 96374; J0690; J1100; J1885; J2175; J2250; J2270; J2405; J3010; J7120